=== PATIENT | female | born 1980 | race Caucasian/White ===

== ENCOUNTER → 2016-05-13 | Outpatient (CLI) | payer BC ==
--- NOTE | 2016-05-16 20:09 | US ---
Examination: Greater than 14 weeks transabdominal ultrasound with color Doppler and M-mode evaluatio n. HISTORY: FINDINGS: LMP is 10/05/2015 EVALUATION: Anterior placenta with a cephalic lie and grade 2. Visually amniotic fluid is with in normal limits. Three-vessel cord is seen. Heart rate is 140 beats per minute. BIOMETRY AND GESTATIONAL AGE: Biparietal diameter 7.8 cm. The abdominal circumference measures 27.3 cm. The femoral length is 6.1 cm with head circumference of 29 cm. Gestational age is 31 weeks and 3 days. The expected date of de livery is approximately 07/12/2016. Fetus weight is 1784 grams. Overall the fetus is within the 36th percentile. IMPRESSION: Single active IU with cephalic fetus. Anterior placenta with grade 2, no placenta previa. No anomalies are seen. Amniotic fluid appears within normal limits.
== END ==
LOC: MW.US 13:19
PROVIDERS: ATTEND Advanced Practice Midwife
DX: Z34.90 Encounter for supervision of normal pregnancy, unspecified, unspecified trimester (principal)
CPT/HCPCS: 76815-26; 76816

== ENCOUNTER → 2016-05-15 | Outpatient (CLI) | payer BC | LOC: MW.CHOBGYN 13:47 | PROVIDERS: ATTEND Advanced Practice Midwife | DX: R30.0 Dysuria (principal) | CPT/HCPCS: 81003 ==

== ENCOUNTER → 2016-06-11 | Outpatient (CLI) | payer BC | LOC: MW.CHOBGYN 15:01 | PROVIDERS: ATTEND Obstetrics & Gynecology | DX: Z34.90 Encounter for supervision of normal pregnancy, unspecified, unspecified trimester (principal) | CPT/HCPCS: 87081 ==

== ENCOUNTER → 2016-06-18 | Outpatient (CLI) | payer BC | LOC: MW.CHOBGYN 13:17 | PROVIDERS: ATTEND Obstetrics & Gynecology | DX: Z34.90 Encounter for supervision of normal pregnancy, unspecified, unspecified trimester (principal) | CPT/HCPCS: 81003 ==

== ENCOUNTER → 2016-07-02 | Outpatient (CLI) | payer BC | LOC: MW.CHOBGYN 10:42 | PROVIDERS: ATTEND Obstetrics & Gynecology | DX: Z34.90 Encounter for supervision of normal pregnancy, unspecified, unspecified trimester (principal) | CPT/HCPCS: 81003 ==

== ENCOUNTER 2016-07-08 08:00 | Inpatient (IN) | payer BC ==
[~2016-07-08 08:00] MED LIST: Citric Acid/Sodium Citrate Solution 30 ML Cup PO SCH; Sodium Chloride 0.9% 10 ML Syringe FLUSH PRN; Sodium Chloride 0.9% 2.5 ML Syringe FLUSH PRN
[2016-07-08] MEDS ORDERED: Octyl 2-Cyanoacrylate 1 Tube ONE (09:31)
--- NOTE | 2016-07-08 10:24 | PCM.LDHP ---
L&D History of Present Illness - General Date of Service: 07/08/16 Admit Problem/Dx: Patient Status Order with Admit Dx/Problem 07/07/16 13:25 Patient Status [ADT] Routine Admission Diagnosis/Problem Admission Diagnosis/Problem - planned Source of Information: Patient History Limitations: Reports: No limitations - History of Present Illness Improves with: Reports: None Worsens with: Reports: None Associated Symptoms: Reports: N - Related Data Allergies/Adverse Reactions: Allergies Allergy/AdvReac Type Severity Reaction Status Date / Time No Known Allergies Allergy Verified 04/12/16 20:07 Home Medications: Home Meds Vit W-Ca,Fe,FA(<1 mg) [ Vitamins] 1 tab PO DAILY 07/04/16 [ History] Past Medical History - Past Health History Medical/Surgical History: Denies Medical/Surgical History HEENT History: Reports: Other (see below) Other HEENT History: wears glasses/contacts Cardiovascular History: Reports: Other (see below) Other Cardiovascular History: HTN with previous Respiratory History: Reports: None Gastrointestinal History: Reports: Other (see below) Other Gastrointestinal History: heartburn with Genitourinary History: Reports: None 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: , Spontaneous Musculoskeletal History: Reports: None Neurological History: Reports: None Psychiatric History: Reports: Anxiety Endocrine/Metabolic History: Reports: None Hematologic History: Reports: None Oncologic (Cancer) History: Reports: None Dermatologic History: Reports: None - Infectious Disease History Infectious Disease History: Reports: None - Past Surgical History Head Surgeries/Procedures: Reports: None HEENT Surgical History: Reports: Oral surgery Other HEENT Surgeries/Procedures: wisdom teeth extraction Female Surgical History: Reports: Breast implant, section, D&C Social & Family History - Family History Family Medical History: Noncontributory - Tobacco Use Smoking Status *Q: Never Smoker Second Hand Smoke Exposure: No - Caffeine Use Caffeine Use: Reports: Coffee, Tea - Alcohol Use Days Per Week of Alcohol Use: 0 - Recreational Drug Use Recreational Drug Use: No H&P Review of Systems - Review of Systems: Review Of Systems: See Below General: Reports: no symptoms HEENT: Reports: no symptoms Pulmonary: Reports: No Symptoms Cardiovascular: Reports: no symptoms Gastrointestinal: Reports: No symptoms Genitourinary: Reports: no symptoms Musculoskeletal: Reports: no symptoms Skin: Reports: no symptoms Psychiatric: Reports: no symptoms Neurological: Reports: No Symptoms Hematologic/Lymphatic: Reports: no symptoms Immunologic: Reports: no symptoms L&D Exam - Exam Exam: See Below - Vital Signs Weight: 70.76 kg - OB Specific Fundal Height in cm: 36 Contraction Intensity: Mild movement: active heart tones: present Presentation: Vertex - Patient Data Lab Results last 24 hrs: Laboratory Results - last 24 hr 07/07/16 07/07/16 Range/Units 14:10 14:10 WBC 12.01 H (4.0-11.0) K/uL RBC 4.57 (4.30-5.90) M/uL Hgb 13.3 (12.0-16.0) g/dL Hct 40.4 (36.0-46.0) % MCV 88.4 (80.0-98.0) fL MCH 29.1 (27.0-32.0) pg MCHC 32.9 (31.0-37.0) g/dL RDW Std Deviation 46.3 (28.0-62.0) fl RDW Coeff of Susan 14 (11.0-15.0) % Plt Count 171 (150-400) K/uL MPV 10.10 (7.40-12.00) fL Nucleated RBC % 0.0 /100WBC Nucleated RBCs # 0 K/uL Blood Type A POSITIVE Antibody Screen NEGATIVE Result Diagrams: 07/07/16 14:10 Problem List Initiated/Reviewed/Updated: Yes Orders Last 24hrs: Active Orders 24 hr Category Date Time Status Patient Status [ADT] Routine ADT 07/07/16 13:25 Active Non Stress Test [RC] PER UNIT ROUTINE Care 07/07/16 13:25 Active Procedure Site Prep Instruct [RC] ASDIRECTED Care 07/07/16 13:25 Active Up ad Ashwini [RC] ASDIRECTED Care 07/07/16 13:25 Active Verify Patient Consent Obtain [RC] ASDIRECTED Care 07/07/16 13:25 Active Vital Signs [RC] PER UNIT ROUTINE Care 07/07/16 13:25 Active Citric Acid/Sodium Citrate [Bicitra Solution] Med 07/07/16 13:30 Active 30 ml PO .ONCE Lactated Ringers [Ringers, Lactated] 1,000 ml Med 07/07/16 13:30 Active IV .BOLUS Sodium Chloride 0.9% [Saline Flush] Med 07/07/16 13:25 Active 10 ml FLUSH ASDIRECTED PRN Sodium Chloride 0.9% [Saline Flush] Med 07/07/16 13:25 Active 2.5 ml FLUSH ASDIRECTED PRN Peripheral IV Insertion Adult [OM.PC] Routine Oth 07/07/16 13:25 Ordered Schedule Procedure [COMM] Per Unit Routine Oth 07/07/16 13:25 Ordered Resuscitation Status Routine Resus Stat 07/07/16 13:25 Ordered Medication Orders Citric Acid/Sodium Citrate (Bicitra Solution) 30 ml PO .ONCE DEANNE Lactated Ringer's (Ringers, Lactated) 1,000 mls @ 500 mls/hr IV .BOLUS DEANNE Sodium Chloride (Saline Flush) 10 ml FLUSH ASDIRECTED PRN PRN Reason: Keep Vein Open Sodium Chloride (Saline Flush) 2.5 ml FLUSH ASDIRECTED PRN PRN Reason: Keep Vein Open Assessment/Plan Comment:: And patient admitted for elective repeat section
[2016-07-08] MEDS ORDERED: Morphine PF 10 MG/10 ML SDV ONE (10:55)
[2016-07-08] MEDS: Lactated Ringers 1,000 ML IV SCH ×4 (10:56→23:45)
--- NOTE | 2016-07-08 11:46 | PCM.PREANE ---
Preanesthetic Assessment - Procedure Proposed Procedure: #3 - Anesthesia/Transfusion/Family Hx Anesthesia History: Prior Anesthesia Without Reaction Family History of Anesthesia Reaction: No Transfusion History: No Prior Transfusion(s) Intubation History: Unknown - Review of Systems General: No Symptoms Pulmonary: No Symptoms Cardiovascular: No Symptoms Gastrointestinal: Other (GERD of ) Neurological: No Symptoms Other: Reports: None - Physical Assessment NPO Status Date: 07/07/16 NPO Status Time: 22:00 Height: 5 ft 3 in Weight: 156 lb ASA Class: 2 Mental Status: Alert & Oriented x3 Airway Class: Mallampati = 3 (cooperation dependent) Dentition: Reports: Normal Dentition Thyro-Mental Finger Breadths: 3 Mouth Opening Finger Breadths: 3 ROM/Head Extension: Full Lungs: Clear to auscultation, Normal respiratory effort Cardiovascular: Regular Rate, Regular Rhythm, No Murmurs Other: Wears glasses (and needs them) - Lab Values: Laboratory Last Values WBC 12.01 K/uL (4.0-11.0) H 07/07/16 14:10 RBC 4.57 M/uL (4.30-5.90) 07/07/16 14:10 Hgb 13.3 g/dL (12.0-16.0) 07/07/16 14:10 Hct 40.4 % (36.0-46.0) 07/07/16 14:10 MCV 88.4 fL (80.0-98.0) 07/07/16 14:10 MCH 29.1 pg (27.0-32.0) 07/07/16 14:10 MCHC 32.9 g/dL (31.0-37.0) 07/07/16 14:10 RDW Std Deviation 46.3 fl (28.0-62.0) 07/07/16 14:10 RDW Coeff of Susan 14 % (11.0-15.0) 07/07/16 14:10 Plt Count 171 K/uL (150-400) 07/07/16 14:10 MPV 10.10 fL (7.40-12.00) 07/07/16 14:10 Nucleated RBC % 0.0 /100WBC 07/07/16 14:10 Nucleated RBCs # 0 K/uL 07/07/16 14:10 Blood Type A POSITIVE 07/07/16 14:10 Antibody Screen NEGATIVE 07/07/16 14:10 - Allergies Allergies/Adverse Reactions: Allergies Allergy/AdvReac Type Severity Reaction Status Date / Time No Known Allergies Allergy Verified 04/12/16 20:07 - Blood Blood Available: No Product(s) Available: None - Acknowledgements Anesthesia Type Planned: Spinal Pt an Appropriate Candidate for the Planned Anesthesia: Yes Alternatives and Risks of Anesthesia Discussed w Pt/Guardian: Yes Pt/Guardian Understands and Agrees with Anesthesia Plan: Yes PreAnesthesia Questionnaire - Past Health History Medical/Surgical History: Denies Medical/Surgical History HEENT History: Reports: Other (see below) Other HEENT History: wears glasses/contacts Cardiovascular History: Reports: Other (see below) Other Cardiovascular History: HTN with previous Respiratory History: Reports: None Gastrointestinal History: Reports: Other (see below) Other Gastrointestinal History: heartburn with Genitourinary History: Reports: None 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: , Spontaneous Musculoskeletal History: Reports: None Neurological History: Reports: None Psychiatric History: Reports: Anxiety Endocrine/Metabolic History: Reports: None Hematologic History: Reports: None Oncologic (Cancer) History: Reports: None Dermatologic History: Reports: None - Infectious Disease History Infectious Disease History: Reports: None - Past Surgical History Head Surgeries/Procedures: Reports: None HEENT Surgical History: Reports: Oral surgery Other HEENT Surgeries/Procedures: wisdom teeth extraction Female Surgical History: Reports: Breast implant, section, D&C - SUBSTANCE USE Smoking Status *Q: Never Smoker Second Hand Smoke Exposure: No Days Per Week of Alcohol Use: 0 Recreational Drug Use History: No - HOME MEDS Home Medications: Home Meds Vit W-Ca,Fe,FA(<1 mg) [ Vitamins] 1 tab PO DAILY 07/04/16 [ History] - CURRENT (IN HOUSE) MEDS Current Meds: Current Medications Citric Acid/Sodium Citrate (Bicitra Solution) 30 ml PO .ONCE DEANNE Lactated Ringer's (Ringers, Lactated) 1,000 mls @ 500 mls/hr IV .BOLUS DEANNE Last Admin: 07/08/16 11:37 Dose: 999 mls/hr Sodium Chloride (Saline Flush) 10 ml FLUSH ASDIRECTED PRN PRN Reason: Keep Vein Open Sodium Chloride (Saline Flush) 2.5 ml FLUSH ASDIRECTED PRN PRN Reason: Keep Vein Open Discontinued Medications Morphine Sulfate (Duramorph Pf) Confirm Administered Dose 10 mg .ROUTE .STK-MED ONE Stop: 07/08/16 10:56 Octyl Cyanoacrylate (Dermabond Advance) Confirm Administered Dose 1 applic .ROUTE .STK-MED ONE Stop: 07/08/16 09:32
[2016-07-08] MEDS ORDERED: ePHEDrine 50 MG/ML SDV ONE (12:12)
[2016-07-08] MEDS ORDERED: Ondansetron 4 MG/2 ML SDV ONE (12:37)
[2016-07-08] MEDS ORDERED: Oxytocin 10 Units/1 ML SDV ONE (12:37)
[2016-07-08] MEDS ORDERED: Naloxone 0.4 MG/ML Syringe IVPUSH PRN (12:51)
[2016-07-08] MEDS ORDERED: fentaNYL 100 MCG/2 ML SDV IVPUSH PRN (12:51)
[2016-07-08] MEDS ORDERED: Acetaminophen/oxyCODONE 325-5 MG Tab PO PRN ×3 (12:51→12:52)
[2016-07-08] MEDS ORDERED: diphenhydrAMINE 50 MG/ML SDV IVPUSH PRN ×2 (12:51→12:52)
[2016-07-08] MEDS ORDERED: Nalbuphine 10 MG/1 ML Vial IVPUSH PRN (12:51)
[2016-07-08] MEDS ORDERED: Bisacodyl 10 MG Supp RECTAL PRN (12:52)
[2016-07-08] MEDS ORDERED: Lanolin 100% Cream 7 GM Tube TOP PRN (12:52)
[2016-07-08] MEDS ORDERED: Ondansetron 4 MG/2 ML SDV IV PRN (12:52)
--- NOTE | 2016-07-08 12:56 | PCM.OPNOTE ---
- General Post-Op/Procedure Note Date of Surgery/Procedure: 07/08/16 Operative Procedure(s): Repeat C/Section Pre Op Diagnosis: Term Post-Op Diagnosis: Same Anesthesia Technique: Spinal Primary Surgeon: Diego Fisher Cap Coverer: Callie Valero EBL in mLs: 700 Complications: None Condition: Good
[2016-07-08] MEDS: Ketorolac 30 MG/ML SDV IVPUSH SCH ×2 (13:29→19:20)
--- NOTE | 2016-07-08 13:43 | PCM.POSTAN ---
POST ANESTHESIA ASSESSMENT - MENTAL STATUS Mental Status: alert, oriented - RESPIRATORY Respiratory Status: respiratory rate WNL, airway patent, O2 saturation stable - CARDIOVASCULAR CV Status: pulse rate WNL, blood pressure stable - GASTROINTESTINAL GI Status: no symptoms - POST OP HYDRATION Hydration Status: adequate & stable
--- NOTE | 2016-07-08 21:05 | OR ---
SURGEON: Diego Fisher MD DATE OF PROCEDURE: 07/08/2016 PREOPERATIVE DIAGNOSES: Term , previous section, admitted for elective repeat section. TARGET PROTECTION SPECIALIST: Callie Valero and Dr. Gottlieb. ANESTHESIA: Spinal by Guerda Alves and Dr. Cuellar. ESTIMATED BLOOD LOSS: 750 mL. COMPLICATION: None. FINDINGS: Normal uterus, tubes, and ovary. Male fetus. score reported to be 8 and 9. INDICATION FOR SURGERY: This patient is 35. She had a previous section. She is followed in our clinic primarily by me and the nurse christian counselor, Callie Valero. She is admitted for elective repeat section. Her GBS status was negative. She has no complication. PROCEDURE IN DETAIL: The patient was brought to the OR, properly identified, and after adequate level of spinal anesthesia, the patient was prepped and draped in sterile fashion as usual with a Rogel catheter in the bladder. Low transverse skin incision was done excising the old scar. The Chayo's fascia and rectus fascia were open in the direction of the incision. The 2 recti muscles were and peritoneal cavity was entered. Bladder flap was raised in the usual manner pushing the bladder away from the lower uterine segment. Low transverse uterine incision was done and extended manually with hand. Fetus was in a vertex position. Delivered without any problem and cried immediately. score reported to be 9 and 9. The placenta delivered spontaneous, complete, and intact. Then, repair of the lower uterine segment done with 2-0 Vicryl continuous interlocking in 2 layers. Reperitonealization done with 3-0 Vicryl continuous. The peritoneal cavity evacuated completely from all blood and blood clot and closed with 3-0 Vicryl continuous. The rectus fascia was closed with #1 PDS continuous and the Chayo's fascia was closed with 3-0 Vicryl continuous. The skin closed with skin clips, subcuticulars, and Dermabond. Instrument and sponge count was correct. The patient tolerated the procedure well, went to recovery room in stable and general condition. KAILEE / SILAS /[id number]
[2016-07-09] MEDS: Ketorolac 30 MG/ML SDV IVPUSH SCH ×3 (01:12→13:22)
[2016-07-09] MEDS: Docusate Sodium 100 MG Cap PO SCH ×4 (06:49→20:20)
--- NOTE | 2016-07-09 08:26 | PCM.SURGPN ---
- General Info Date of Service: 07/09/16 POD#: 1 Functional Status: Reports: pain controlled - Review of Systems General: Reports: No Symptoms HEENT: Reports: no symptoms Pulmonary: Reports: no symptoms Cardiovascular: Reports: No Symptoms Gastrointestinal: Reports: No symptoms Genitourinary: Reports: no symptoms Musculoskeletal: Reports: no symptoms Skin: Reports: no symptoms Neurological: Reports: No Symptoms Psychiatric: Reports: no symptoms - Patient Data Vitals - most recent: Last Vital Signs Temp 36.6 C 07/09/16 04:00 Pulse 96 07/09/16 04:00 Resp 15 07/09/16 06:00 BP 96/53 L 07/09/16 04:00 Pulse Ox 98 07/09/16 06:00 Weight - most recent: 70.76 kg I&O - last 24 hours: Intake & Output 07/08/16 07/09/16 07/09/16 22:59 06:59 14:59 Intake Total 50 Output Total 50 Balance 0 Lab Results last 24 hrs: Laboratory Results - last 24 hr 07/09/16 Range/Units 06:18 Hgb 10.9 L (12.0-16.0) g/dL Hct 33.8 L (36.0-46.0) % Med Orders - Current: Current Medications Bisacodyl (Dulcolax) 10 mg RECTAL .ONCE PRN PRN Reason: Constipation Citric Acid/Sodium Citrate (Bicitra Solution) 30 ml PO .ONCE DEANNE Last Admin: 07/08/16 11:54 Dose: 30 ml Diphenhydramine HCl (Benadryl) 25 mg IVPUSH Q6H PRN PRN Reason: Itching or Nausea Diphenhydramine HCl (Benadryl) 25 mg IVPUSH Q4H PRN PRN Reason: Itching Stop: 07/09/16 12:53 Docusate Sodium (Colace) 100 mg PO BID DEANNE Last Admin: 07/09/16 07:40 Dose: 100 mg Emollient Ointment (Lansinoh Hpa) 0 gm TOP ASDIRECTED PRN PRN Reason: Sore Nipples Fentanyl (Sublimaze) 100 mcg IVPUSH Q30M PRN PRN Reason: Breakthrough Pain Stop: 07/09/16 12:52 Last Admin: 07/08/16 17:42 Dose: 100 mcg Lactated Ringer's (Ringers, Lactated) 1,000 mls @ 500 mls/hr IV .BOLUS [facility] Last Admin: 07/08/16 11:37 Dose: 999 mls/hr Lactated Ringer's (Ringers, Lactated) 1,000 mls @ 125 mls/hr IV ASDIRECTED [facility] Last Admin: 07/08/16 23:45 Dose: 125 mls/hr Ibuprofen (Motrin) 800 mg PO Q8H PRN PRN Reason: mild pain or fever Ketorolac Tromethamine (Toradol) 30 mg IVPUSH Q6H [facility] Stop: 07/09/16 13:01 Last Admin: 07/09/16 07:37 Dose: 30 mg Nalbuphine HCl (Nubain) 10 mg IVPUSH Q3H PRN PRN Reason: Pruritis Stop: 07/09/16 12:53 Naloxone HCl (Narcan) 0.1 mg IVPUSH ONETIME PRN PRN Reason: Respiratory Depression Stop: 07/09/16 12:53 Ondansetron HCl (Zofran) 4 mg IV Q4H PRN PRN Reason: Nausea/Vomiting Last Admin: 07/08/16 17:39 Dose: 4 mg Oxycodone/Acetaminophen (Percocet 325-5 Mg) 1 tab PO Q4H PRN PRN Reason: Pain (moderate 4-6) Oxycodone/Acetaminophen (Percocet 325-5 Mg) 2 tab PO Q4H PRN PRN Reason: Pain (moderate 4-6) Oxycodone/Acetaminophen (Percocet 325-5 Mg) 1 - 2 tab PO Q4H PRN PRN Reason: Breakthrough Pain Sodium Chloride (Saline Flush) 10 ml FLUSH ASDIRECTED PRN PRN Reason: Keep Vein Open Sodium Chloride (Saline Flush) 2.5 ml FLUSH ASDIRECTED PRN PRN Reason: Keep Vein Open Discontinued Medications Ephedrine Sulfate (Ephedrine Sulfate) Confirm Administered Dose 50 mg .ROUTE .STK-MED ONE Stop: 07/08/16 12:13 Cefazolin Sodium/Dextrose (Ancef) Confirm Administered Dose 50 mls @ as directed .ROUTE .STK-MED ONE Stop: 07/08/16 12:25 Morphine Sulfate (Duramorph Pf) Confirm Administered Dose 10 mg .ROUTE .STK-MED ONE Stop: 07/08/16 10:56 Octyl Cyanoacrylate (Dermabond Advance) Confirm Administered Dose 1 applic .ROUTE .STK-MED ONE Stop: 07/08/16 09:32 Ondansetron HCl (Zofran) Confirm Administered Dose 4 mg .ROUTE .STK-MED ONE Stop: 07/08/16 12:38 Oxytocin (Pitocin) Confirm Administered Dose 20 unit .ROUTE .STK-MED ONE Stop: 07/08/16 12:38 - Exam Wound/Incisions: healing well General: alert, oriented HEENT: Pupils equal Neck: supple Lungs: Clear to auscultation, Normal respiratory effort Cardiovascular: Regular Rate, Regular Rhythm Abdomen: bowel sounds present, soft, no tenderness, no distension Extremities: no edema Skin: warm, dry, intact Neurological: no new focal deficit Psy/Mental Status: alert, normal affect, normal mood - Problem List Review Problem List Initiated/Reviewed/Updated: Yes - My Orders Last 24 Hours: Active Orders 24 hr Category Date Time Status Patient Status [ADT] Routine ADT 07/08/16 12:52 Active Ambulate [RC] PER UNIT ROUTINE Care 07/08/16 12:52 Active Antiembolic Devices [RC] PER UNIT ROUTINE Care 07/08/16 12:53 Active Bradycardia-Neuroaxis [employer] [RC] ROUTINE Care 07/08/16 12:51 Active Communication Order [RC] PER UNIT ROUTINE Care 07/08/16 12:52 Active Communication Order [RC] PER UNIT ROUTINE Care 07/08/16 12:52 Active Communication Order [RC] Per Unit Routine Care 07/08/16 12:52 Active Hypertension-Neuroaxis [employer] [RC] ROUTINE Care 07/08/16 12:51 Active Hypotension-Neuroaxis [employer] [RC] ROUTINE Care 07/08/16 12:51 Active May Shower [RC] ASDIRECTED Care 07/08/16 12:52 Active Oxygen Therapy [RC] PER UNIT ROUTINE Care 07/08/16 12:51 Active RT Incentive Spirometry [RC] Q2HWA Care 07/08/16 12:52 Active Vital Signs [RC] PER UNIT ROUTINE Care 07/08/16 12:52 Active Vital Signs [RC] Q1H Care 07/08/16 12:51 Active Acetaminophen/oxyCODONE [Percocet 325-5 MG] Med 07/08/16 12:51 Active 1 - 2 tab PO Q4H PRN Acetaminophen/oxyCODONE [Percocet 325-5 MG] Med 07/08/16 12:52 Active 1 tab PO Q4H PRN Acetaminophen/oxyCODONE [Percocet 325-5 MG] Med 07/08/16 12:52 Active 2 tab PO Q4H PRN Bisacodyl [Dulcolax] Med 07/08/16 12:52 Active 10 mg RECTAL .ONCE PRN Docusate Sodium [Colace] Med 07/08/16 21:00 Active 100 mg PO BID Ibuprofen [Motrin] Med 07/08/16 12:52 Active 800 mg PO Q8H PRN Ketorolac [Toradol] Med 07/08/16 13:00 Active 30 mg IVPUSH Q6H Lactated Ringers [Ringers, Lactated] 1,000 ml Med 07/08/16 13:00 Active IV ASDIRECTED Lanolin [Lansinoh HPA] Med 07/08/16 12:52 Active See Dose Instructions TOP ASDIRECTED PRN Nalbuphine [Nubain] Med 07/08/16 12:51 Active 10 mg IVPUSH Q3H PRN Naloxone [Narcan] Med 07/08/16 12:51 Active 0.1 mg IVPUSH ONETIME PRN Ondansetron [Zofran] Med 07/08/16 12:52 Active 4 mg IV Q4H PRN diphenhydrAMINE [Benadryl] Med 07/08/16 12:51 Active 25 mg IVPUSH Q4H PRN diphenhydrAMINE [Benadryl] Med 07/08/16 12:52 Active 25 mg IVPUSH Q6H PRN fentaNYL [Sublimaze] Med 07/08/16 12:51 Active 100 mcg IVPUSH Q30M PRN AN Neuroaxis Duramorph Precaution Reflex [OM.PC] PER Oth 07/08/16 13:00 Ordered UNIT ROUTINE AN Neuroaxis Duramorph Precaution Reflex [OM.PC] PER Oth 07/09/16 13:00 Ordered UNIT ROUTINE Assess Lochia [WOMSER] Per Unit Routine Oth 07/08/16 12:52 Ordered Assess Uterine Involution [WOMSER] Per Unit Routine Oth 07/08/16 12:52 Ordered Breast Pump [WOMSER] Per Unit Routine Oth 07/08/16 12:52 Ordered Peripheral IV Discontinue [OM.PC] Routine Oth 07/08/16 12:52 Ordered Sequential Compression Device [OM.PC] Per Unit Routine Oth 07/08/16 12:52 Ordered Medication Orders Bisacodyl (Dulcolax) 10 mg RECTAL .ONCE PRN PRN Reason: Constipation Citric Acid/Sodium Citrate (Bicitra Solution) 30 ml PO .ONCE [facility] Last Admin: 07/08/16 11:54 Dose: 30 ml Diphenhydramine HCl (Benadryl) 25 mg IVPUSH Q6H PRN PRN Reason: Itching or Nausea Diphenhydramine HCl (Benadryl) 25 mg IVPUSH Q4H PRN PRN Reason: Itching Stop: 07/09/16 12:53 Docusate Sodium (Colace) 100 mg PO BID [facility] Last Admin: 07/09/16 07:40 Dose: 100 mg Admin: 07/09/16 06:49 Dose: Not Given Emollient Ointment (Lansinoh Hpa) 0 gm TOP ASDIRECTED PRN PRN Reason: Sore Nipples Fentanyl (Sublimaze) 100 mcg IVPUSH Q30M PRN PRN Reason: Breakthrough Pain Stop: 07/09/16 12:52 Last Admin: 07/08/16 17:42 Dose: 100 mcg Lactated Ringer's (Ringers, Lactated) 1,000 mls @ 500 mls/hr IV .BOLUS [facility] Last Admin: 07/08/16 11:37 Dose: 999 mls/hr Infusion: 07/08/16 11:37 Dose: 999 mls/hr Admin: 07/08/16 10:56 Dose: 500 mls/hr Lactated Ringer's (Ringers, Lactated) 1,000 mls @ 125 mls/hr IV ASDIRECTED [facility] Last Admin: 07/08/16 23:45 Dose: 125 mls/hr Infusion: 07/08/16 23:40 Dose: 125 mls/hr Admin: 07/08/16 15:40 Dose: 125 mls/hr Ibuprofen (Motrin) 800 mg PO Q8H PRN PRN Reason: mild pain or fever Ketorolac Tromethamine (Toradol) 30 mg IVPUSH Q6H DEANNE Stop: 07/09/16 13:01 Last Admin: 07/09/16 07:37 Dose: 30 mg Admin: 07/09/16 01:12 Dose: 30 mg Admin: 07/08/16 19:20 Dose: 30 mg Admin: 07/08/16 13:29 Dose: 30 mg Nalbuphine HCl (Nubain) 10 mg IVPUSH Q3H PRN PRN Reason: Pruritis Stop: 07/09/16 12:53 Naloxone HCl (Narcan) 0.1 mg IVPUSH ONETIME PRN PRN Reason: Respiratory Depression Stop: 07/09/16 12:53 Ondansetron HCl (Zofran) 4 mg IV Q4H PRN PRN Reason: Nausea/Vomiting Last Admin: 07/08/16 17:39 Dose: 4 mg Oxycodone/Acetaminophen (Percocet 325-5 Mg) 1 tab PO Q4H PRN PRN Reason: Pain (moderate 4-6) Oxycodone/Acetaminophen (Percocet 325-5 Mg) 2 tab PO Q4H PRN PRN Reason: Pain (moderate 4-6) Oxycodone/Acetaminophen (Percocet 325-5 Mg) 1 - 2 tab PO Q4H PRN PRN Reason: Breakthrough Pain Sodium Chloride (Saline Flush) 10 ml FLUSH ASDIRECTED PRN PRN Reason: Keep Vein Open Sodium Chloride (Saline Flush) 2.5 ml FLUSH ASDIRECTED PRN PRN Reason: Keep Vein Open - Assessment Assessment (Free Text/Narrative):: Status post section postoperative day #1 the patient is doing well abdomen is soft incision is clean and dry normal lochia and her H&H is stable. On regular diet ambulatory around the bed - Plan Plan (Free Text/Narrative):: Plan to send the patient home in a.m.
--- NOTE | 2016-07-09 15:59 | PCM48HPAN ---
Post Anesthesia Note - EVALUATION WITHIN 48HRS OF ANESTHETIC Vital Signs in Normal Range: Yes Patient Participated in Evaluation: Yes Respiratory Function Stable: Yes Airway Patent: Yes Cardiovascular Function Stable: Yes Hydration Status Stable: Yes Pain Control Satisfactory: Yes Nausea and Vomiting Control Satisfactory: Yes Mental Status Recovered: Yes
[2016-07-09] MEDS: Ibuprofen 800 MG Tab PO PRN (20:21)
[2016-07-10] MEDS: Ibuprofen 800 MG Tab PO PRN (05:26)
[2016-07-10] MEDS: Docusate Sodium 100 MG Cap PO SCH (09:00)
--- NOTE | 2016-07-10 09:14 | PCM.SURGPN ---
- General Info Date of Service: 07/10/16 POD#: 1 Functional Status: Reports: pain controlled - Review of Systems General: Reports: No Symptoms HEENT: Reports: no symptoms Pulmonary: Reports: no symptoms Cardiovascular: Reports: No Symptoms Gastrointestinal: Reports: No symptoms Genitourinary: Reports: no symptoms Musculoskeletal: Reports: no symptoms Skin: Reports: no symptoms Neurological: Reports: No Symptoms Psychiatric: Reports: no symptoms - Patient Data Vitals - most recent: Last Vital Signs Temp 36.3 C 07/10/16 03:53 Pulse 83 07/10/16 03:53 Resp 16 07/10/16 03:53 BP 103/58 L 07/10/16 03:53 Pulse Ox 97 07/10/16 03:53 Weight - most recent: 70.76 kg I&O - last 24 hours: Intake & Output 07/09/16 07/10/16 07/10/16 22:59 06:59 14:59 Intake Total 600 Balance 600 Lab Results last 24 hrs: Laboratory Results - last 24 hr 07/09/16 Range/Units 22:50 Urine Color YELLOW Urine Appearance CLEAR Urine pH 6.5 (5.0-8.0) Ur Specific [place] <= 1.005 (1.001-1.035) Urine Protein NEGATIVE (NEGATIVE) mg/dL Urine Glucose (UA) 100 H (NEGATIVE) mg/dL Urine Ketones NEGATIVE (NEGATIVE) mg/dL Urine Occult Blood MODERATE (NEGATIVE) Urine Nitrite NEGATIVE (NEGATIVE) Urine Bilirubin NEGATIVE (NEGATIVE) Urine Urobilinogen 0.2 (<2.0) EU/dL Ur Leukocyte Esterase NEGATIVE (NEGATIVE) Urine RBC 2-3 (0-2/HPF) Urine WBC 0-2 (0-5/HPF) Ur Epithelial Cells FEW (NONE-FEW) Urine Bacteria FEW (NEGATIVE) Med Orders - Current: Current Medications Bisacodyl (Dulcolax) 10 mg RECTAL .ONCE PRN PRN Reason: Constipation Citric Acid/Sodium Citrate (Bicitra Solution) 30 ml PO .ONCE DEANNE Last Admin: 07/08/16 11:54 Dose: 30 ml Diphenhydramine HCl (Benadryl) 25 mg IVPUSH Q6H PRN PRN Reason: Itching or Nausea Diphtheria/Tetanus/Acell Pertussis (Adacel) 0.5 ml IM .ONCE ONE Stop: 07/10/16 11:01 Docusate Sodium (Colace) 100 mg PO BID [facility] Last Admin: 07/10/16 09:00 Dose: 100 mg Emollient Ointment (Lansinoh Hpa) 0 gm TOP ASDIRECTED PRN PRN Reason: Sore Nipples Lactated Ringer's (Ringers, Lactated) 1,000 mls @ 500 mls/hr IV .BOLUS [facility] Last Admin: 07/08/16 11:37 Dose: 999 mls/hr Lactated Ringer's (Ringers, Lactated) 1,000 mls @ 125 mls/hr IV ASDIRECTED [facility] Last Admin: 07/08/16 23:45 Dose: 125 mls/hr Ibuprofen (Motrin) 800 mg PO Q8H PRN PRN Reason: mild pain or fever Last Admin: 07/10/16 05:26 Dose: 800 mg Ondansetron HCl (Zofran) 4 mg IV Q4H PRN PRN Reason: Nausea/Vomiting Last Admin: 07/08/16 17:39 Dose: 4 mg Oxycodone/Acetaminophen (Percocet 325-5 Mg) 1 tab PO Q4H PRN PRN Reason: Pain (moderate 4-6) Last Admin: 07/09/16 20:20 Dose: 1 tab Oxycodone/Acetaminophen (Percocet 325-5 Mg) 2 tab PO Q4H PRN PRN Reason: Pain (moderate 4-6) Last Admin: 07/10/16 01:22 Dose: 2 tab Oxycodone/Acetaminophen (Percocet 325-5 Mg) 1 - 2 tab PO Q4H PRN PRN Reason: Breakthrough Pain Sodium Chloride (Saline Flush) 10 ml FLUSH ASDIRECTED PRN PRN Reason: Keep Vein Open Sodium Chloride (Saline Flush) 2.5 ml FLUSH ASDIRECTED PRN PRN Reason: Keep Vein Open Discontinued Medications Diphenhydramine HCl (Benadryl) 25 mg IVPUSH Q4H PRN PRN Reason: Itching Stop: 07/09/16 12:53 Ephedrine Sulfate (Ephedrine Sulfate) Confirm Administered Dose 50 mg .ROUTE .STK-MED ONE Stop: 07/08/16 12:13 Fentanyl (Sublimaze) 100 mcg IVPUSH Q30M PRN PRN Reason: Breakthrough Pain Stop: 07/09/16 12:52 Last Admin: 07/08/16 17:42 Dose: 100 mcg Cefazolin Sodium/Dextrose (Ancef) Confirm Administered Dose 50 mls @ as directed .ROUTE .STK-MED ONE Stop: 07/08/16 12:25 Ketorolac Tromethamine (Toradol) 30 mg IVPUSH Q6H DEANNE Stop: 07/09/16 13:01 Last Admin: 07/09/16 13:22 Dose: 30 mg Morphine Sulfate (Duramorph Pf) Confirm Administered Dose 10 mg .ROUTE .STK-MED ONE Stop: 07/08/16 10:56 Nalbuphine HCl (Nubain) 10 mg IVPUSH Q3H PRN PRN Reason: Pruritis Stop: 07/09/16 12:53 Naloxone HCl (Narcan) 0.1 mg IVPUSH ONETIME PRN PRN Reason: Respiratory Depression Stop: 07/09/16 12:53 Octyl Cyanoacrylate (Dermabond Advance) Confirm Administered Dose 1 applic .ROUTE .STK-MED ONE Stop: 07/08/16 09:32 Ondansetron HCl (Zofran) Confirm Administered Dose 4 mg .ROUTE .STK-MED ONE Stop: 07/08/16 12:38 Oxytocin (Pitocin) Confirm Administered Dose 20 unit .ROUTE .STK-MED ONE Stop: 07/08/16 12:38 - Exam Wound/Incisions: healing well General: alert, oriented HEENT: Pupils equal Neck: supple Lungs: Clear to auscultation, Normal respiratory effort Cardiovascular: Regular Rate, Regular Rhythm Abdomen: bowel sounds present, soft, no tenderness, no distension Extremities: no edema Skin: warm, dry, intact Neurological: no new focal deficit Psy/Mental Status: alert, normal affect, normal mood - Problem List Review Problem List Initiated/Reviewed/Updated: Yes - My Orders Last 24 Hours: Active Orders 24 hr Category Date Time Status Vaccines to be Administered [RC] PER UNIT ROUTINE Care 07/09/16 14:57 Active Regular Diet [DIET] Diet 07/09/16 Lunch Active Diphth,Pertuss(Acell),Tet Vac [Adacel] Med 07/10/16 11:00 Once 0.5 ml IM .ONCE ONE AN Neuroaxis Duramorph Precaution Reflex [OM.PC] PER Oth 07/09/16 13:00 Ordered UNIT ROUTINE Medication Orders Bisacodyl (Dulcolax) 10 mg RECTAL .ONCE PRN PRN Reason: Constipation Citric Acid/Sodium Citrate (Bicitra Solution) 30 ml PO .ONCE [facility] Last Admin: 07/08/16 11:54 Dose: 30 ml Diphenhydramine HCl (Benadryl) 25 mg IVPUSH Q6H PRN PRN Reason: Itching or Nausea Diphtheria/Tetanus/Acell Pertussis (Adacel) 0.5 ml IM .ONCE ONE Stop: 07/10/16 11:01 Docusate Sodium (Colace) 100 mg PO BID [facility] Last Admin: 07/10/16 09:00 Dose: 100 mg Admin: 07/09/16 20:20 Dose: 100 mg Admin: 07/09/16 10:20 Dose: Not Given Admin: 07/09/16 07:40 Dose: 100 mg Admin: 07/09/16 06:49 Dose: Not Given Emollient Ointment (Lansinoh Hpa) 0 gm TOP ASDIRECTED PRN PRN Reason: Sore Nipples Lactated Ringer's (Ringers, Lactated) 1,000 mls @ 500 mls/hr IV .BOLUS [facility] Last Admin: 07/08/16 11:37 Dose: 999 mls/hr Infusion: 07/08/16 11:37 Dose: 999 mls/hr Admin: 07/08/16 10:56 Dose: 500 mls/hr Lactated Ringer's (Ringers, Lactated) 1,000 mls @ 125 mls/hr IV ASDIRECTED [facility] Last Admin: 07/08/16 23:45 Dose: 125 mls/hr Infusion: 07/08/16 23:40 Dose: 125 mls/hr Admin: 07/08/16 15:40 Dose: 125 mls/hr Ibuprofen (Motrin) 800 mg PO Q8H PRN PRN Reason: mild pain or fever Last Admin: 07/10/16 05:26 Dose: 800 mg Admin: 07/09/16 20:21 Dose: 800 mg Ondansetron HCl (Zofran) 4 mg IV Q4H PRN PRN Reason: Nausea/Vomiting Last Admin: 07/08/16 17:39 Dose: 4 mg Oxycodone/Acetaminophen (Percocet 325-5 Mg) 1 tab PO Q4H PRN PRN Reason: Pain (moderate 4-6) Last Admin: 07/09/16 20:20 Dose: 1 tab Oxycodone/Acetaminophen (Percocet 325-5 Mg) 2 tab PO Q4H PRN PRN Reason: Pain (moderate 4-6) Last Admin: 07/10/16 01:22 Dose: 2 tab Oxycodone/Acetaminophen (Percocet 325-5 Mg) 1 - 2 tab PO Q4H PRN PRN Reason: Breakthrough Pain Sodium Chloride (Saline Flush) 10 ml FLUSH ASDIRECTED PRN PRN Reason: Keep Vein Open Sodium Chloride (Saline Flush) 2.5 ml FLUSH ASDIRECTED PRN PRN Reason: Keep Vein Open - Plan Plan (Free Text/Narrative):: send home today
[2016-07-10 09:19] VITALS: BP 118/71
[2016-07-10] MEDS ORDERED: Diphtheria,Pertussis(Acell),Tetanus Vaccine 0.5 ML Syringe IM ONE (11:00)
== END 2016-07-10 11:30 | disposition home or self-care (01) | DRG 540 ==
LOC: MW.OB 10:09 → MW.MS 07-10 01:07
PROVIDERS: ADMIT Obstetrics & Gynecology; ATTEND Obstetrics & Gynecology
PROC: 10D00Z1 Extraction of Products of Conception, Low, Open Approach (ICD-10-PCS; principal; 2016-07-08)
DX: O34.211 Maternal care for low transverse scar from previous cesarean delivery (principal); Z3A.39 39 weeks gestation of pregnancy; Z37.0 Single live birth
CPT/HCPCS: 01961; 36415; 59025; 81001; 85014; 85018; 85027; 86850; 86900; 86901; 90715; A9270-GY; J0690; J1885; J2270; J2405; J2590; J3010; J7120